=== PATIENT | male | born 1985 | race African-American/Black ===

== ENCOUNTER 2021-08-11 15:31 | Emergency (ER) | payer OTHER ==
[~2021-08-11] VITALS: Ht 165.1 cm; Wt 65.9 kg
[~2021-08-11 15:31] MED LIST: OLAN15TA2 PO; PARO10TA89 PO; QUET100T PO; VALP250S PO
[2021-08-11 16:44] LABS: BASOPHILS % (AUTO) 0.6 % (0.0-2.0); EOSINOPHILS % (AUTO) 5.8 % (1.0-6.0); HEMATOCRIT 36.6 % (41-53); HEMOGLOBIN 12.2 g/dL (13.5-17.5); LYMPHOCYTES # (AUTO) 1.1 K/uL (1.0-4.8); LYMPHOCYTES % (AUTO) 18.3 % (22.0-44.0); MEAN CORPUSCULAR HEMOGLOBIN 32.4 pg (26.0-34.0); MEAN CORPUSCULAR HGB CONC 33.5 G/dL (31.0-37.0); MEAN CORPUSCULAR VOLUME 97 fL (80-100); MONOCYTES # (AUTO) 0.5 K/uL (0.1-1.0); MONOCYTES % (AUTO) 8.2 % (2.0-9.0); NEUTROPHILS % (AUTO) 67.1 % (40.0-70.0); PLATELET COUNT (AUTO) 287 K/uL (150-450); RED BLOOD CELL COUNT(AUTO) 3.78 MIL/uL (4.50-5.90); RED CELL DISTRIBUTION WIDTH 14.1 % (11.5-14.5)
[2021-08-11 16:58] LABS: ANION GAP 8 mmol/L (8-16); CALCIUM, TOTAL 9.2 mg/dL (8.8-10.5); CARBON DIOXIDE 28 mmol/L (22-29); CHLORIDE 105 mmol/L (98-107); CREATININE 1.11 mg/dL (0.60-1.30); GLOMERULAR FILTR. RATE CALC > 60 mL/min (>60); GLUCOSE,RANDOM 102 mg/dL (70-110); POTASSIUM 4.2 mmol/L (3.5-5.1); SODIUM SERUM 141 mmol/L (136-145); UREA NITROGEN, BLOOD 11 mg/dL (7-18)
[2021-08-11 17:03] LABS: ALANINE AMINOTRANSFERASE 20 U/L (12-78); ALKALINE PHOSPHATASE 61 U/L (46-116); ASPARTATE AMINOTRANSFERASE 16 U/L (15-37); BILIRUBIN,TOTAL 0.3 mg/dL (0.1-1.0); TOTAL PROTEIN, SERUM 7.6 g/dL (6.4-8.2)
[2021-08-11] MEDS ORDERED: HALOPERIDOL 5 MG TABLET PO ONE (19:30)
[2021-08-11 19:54] LABS: AMPHET/METH SCREEN,URINE NEGATIVE (NEGATIVE); BARBITURATE SCREEN, URINE NEGATIVE (NEGATIVE); BENZODIAZEPINES SCREEN,URINE NEGATIVE (NEGATIVE); CANNABINOID SCREEN,URINE NEGATIVE (NEGATIVE); COCAINE SCREEN,URINE NEGATIVE (NEGATIVE); METHADONE SCREEN, URINE NEGATIVE (NEGATIVE); OPIATE SCREEN,URINE NEGATIVE (NEGATIVE); PHENCYCLIDINE SCREEN,URINE NEGATIVE (NEGATIVE)
[2021-08-11 21:40] VITALS: BP 104/60
== END 2021-08-11 22:20 | disposition home or self-care (01) ==
LOC: EMS 15:31
DX: F25.9 Schizoaffective disorder, unspecified (principal); Z79.899 Other long term (current) drug therapy
CPT/HCPCS: 36415; 80053; 80307; 85025; 99285; G0480

== ENCOUNTER 2022-03-23 17:41 | Emergency (ER) | payer OTHER ==
[~2022-03-23] VITALS: Ht 175.3 cm; Wt 65.9 kg
[2022-03-23 18:10] LABS: BASOPHILS % (AUTO) 0.3 % (0.0-2.0); EOSINOPHILS % (AUTO) 4.4 % (1.0-6.0); HEMATOCRIT 39.4 % (41-53); HEMOGLOBIN 12.9 g/dL (13.5-17.5); LYMPHOCYTES # (AUTO) 0.9 K/uL (1.0-4.8); LYMPHOCYTES % (AUTO) 16.6 % (22.0-44.0); MEAN CORPUSCULAR HEMOGLOBIN 30.1 pg (26.0-34.0); MEAN CORPUSCULAR HGB CONC 32.8 G/dL (31.0-37.0); MEAN CORPUSCULAR VOLUME 92 fL (80-100); MONOCYTES # (AUTO) 0.5 K/uL (0.1-1.0); NEUTROPHILS # (AUTO) 3.7 K/uL (1.8-7.7); NEUTROPHILS % (AUTO) 69.7 % (40.0-70.0); PLATELET COUNT (AUTO) 326 K/uL (150-450); RED BLOOD CELL COUNT(AUTO) 4.29 MIL/uL (4.50-5.90); RED CELL DISTRIBUTION WIDTH 14.1 % (11.5-14.5)
[2022-03-23] MEDS ORDERED: LORazepam 1 MG TABLET PO ONE (18:15)
[2022-03-23] MEDS ORDERED: HALOPERIDOL 5 MG TABLET PO ONE (18:15)
[2022-03-23] MEDS ORDERED: DiphenhydrAMINE HCL 25 MG CAPSULE PO ONE (18:15)
[2022-03-23] MEDS ORDERED: IBUPROFEN 600 MG TABLET PO ONE (18:15)
[2022-03-23 18:19] LABS: COVID AG,FIA SOURCE NASOPHARYNGEAL
[2022-03-23 18:19] LABS: ANION GAP 11 mmol/L (8-16); CALCIUM, TOTAL 9.3 mg/dL (8.8-10.5); CARBON DIOXIDE 26 mmol/L (22-29); CHLORIDE 103 mmol/L (98-107); CREATININE 1.05 mg/dL (0.60-1.30); GLUCOSE,RANDOM 104 mg/dL (70-110); SODIUM SERUM 140 mmol/L (136-145); UREA NITROGEN, BLOOD 11 mg/dL (7-18)
[2022-03-23 18:25] LABS: ALANINE AMINOTRANSFERASE 25 U/L (12-78); ALBUMIN 4.2 g/dL (3.4-5.0); ALKALINE PHOSPHATASE 72 U/L (46-116); ASPARTATE AMINOTRANSFERASE 20 U/L (15-37); BILIRUBIN,TOTAL 0.4 mg/dL (0.1-1.0); TOTAL PROTEIN, SERUM 7.6 g/dL (6.4-8.2)
[2022-03-23 18:28] LABS: GLOMERULAR FILTR. RATE CALC > 60 mL/min (>60); VALPROIC ACID < 3 mcg/mL (50-100)
[2022-03-23 21:07] LABS: AMPHET/METH SCREEN,URINE NEGATIVE (NEGATIVE); BARBITURATE SCREEN, URINE NEGATIVE (NEGATIVE); BENZODIAZEPINES SCREEN,URINE NEGATIVE (NEGATIVE); CANNABINOID SCREEN,URINE NEGATIVE (NEGATIVE); COCAINE SCREEN,URINE NEGATIVE (NEGATIVE); METHADONE SCREEN, URINE NEGATIVE (NEGATIVE); OPIATE SCREEN,URINE NEGATIVE (NEGATIVE)
[2022-03-23 21:11] LABS: PHENCYCLIDINE SCREEN,URINE NEGATIVE (NEGATIVE)
[2022-03-23 22:48] VITALS: BP 122/80
== END 2022-03-23 23:13 | disposition home or self-care (01) ==
LOC: EMS 17:43
DX: S60.221A Contusion of right hand, initial encounter (principal); F43.0 Acute stress reaction; Z79.899 Other long term (current) drug therapy; Z20.822 Contact with and (suspected) exposure to COVID-19; X58.XXXA Exposure to other specified factors, initial encounter; Y93.89 Activity, other specified; Y92.89 Other specified places as the place of occurrence of the external cause; Y99.8 Other external cause status
CPT/HCPCS: 36415; 73130; 80053; 80164; 80307; 85025; 87426; 99285; G0480

== ENCOUNTER 2022-04-26 16:33 | Inpatient (IN) | payer MEDICAID, OTHER ==
[~2022-04-26] VITALS: Ht 175.3 cm; Wt 69.9 kg
[2022-04-26 17:44] LABS: BASOPHILS % (AUTO) 0.3 % (0.0-2.0); EOSINOPHILS % (AUTO) 2.4 % (1.0-6.0); HEMATOCRIT 39.7 % (41-53); HEMOGLOBIN 13.3 g/dL (13.5-17.5); LYMPHOCYTES # (AUTO) 0.7 K/uL (1.0-4.8); LYMPHOCYTES % (AUTO) 11.9 % (22.0-44.0); MEAN CORPUSCULAR HGB CONC 33.6 G/dL (31.0-37.0); MEAN CORPUSCULAR VOLUME 92 fL (80-100); MONOCYTES # (AUTO) 0.5 K/uL (0.1-1.0); NEUTROPHILS # (AUTO) 4.8 K/uL (1.8-7.7); NEUTROPHILS % (AUTO) 77.4 % (40.0-70.0); PLATELET COUNT (AUTO) 281 K/uL (150-450); RED CELL DISTRIBUTION WIDTH 14.3 % (11.5-14.5)
[2022-04-26 17:57] LABS: ANION GAP 10 mmol/L (8-16); CALCIUM, TOTAL 9.4 mg/dL (8.8-10.5); CARBON DIOXIDE 26 mmol/L (22-29); CHLORIDE 102 mmol/L (98-107); CREATININE 0.96 mg/dL (0.60-1.30); GLOMERULAR FILTR. RATE CALC > 60 mL/min (>60); GLUCOSE,RANDOM 98 mg/dL (70-110); POTASSIUM 3.8 mmol/L (3.5-5.1); SODIUM SERUM 138 mmol/L (136-145); UREA NITROGEN, BLOOD 14 mg/dL (7-18)
[2022-04-26 18:04] LABS: ALANINE AMINOTRANSFERASE 26 U/L (12-78); ALBUMIN 4.2 g/dL (3.4-5.0); ALKALINE PHOSPHATASE 69 U/L (46-116); ASPARTATE AMINOTRANSFERASE 21 U/L (15-37); BILIRUBIN,TOTAL 0.7 mg/dL (0.1-1.0); TOTAL PROTEIN, SERUM 7.6 g/dL (6.4-8.2)
[2022-04-26 18:26] LABS: COVID AG,FIA SOURCE NASAL SWAB
[2022-04-26 19:19] LABS: VALPROIC ACID 6 mcg/mL (50-100)
[2022-04-26] MEDS ORDERED: HALOPERIDOL 5 MG TABLET PO PRN (20:45)
[2022-04-26] MEDS ORDERED: LORazepam 2 MG TABLET PO PRN (20:45)
[2022-04-27] MEDS ORDERED: LORazepam 2 MG/ML VIAL IM ONE (02:15)
[2022-04-27] MEDS ORDERED: HALOPERIDOL LACTATE 5 MG/ML VIAL IM ONE (02:15)
[2022-04-27] MEDS ORDERED: LORazepam 2 MG TABLET PO ONE (02:15)
[2022-04-27] MEDS ORDERED: DiphenhydrAMINE HCL 50 MG/ML VIAL IM ONE (02:15)
[2022-04-27 03:44] LABS: APPEARANCE,URINE CLEAR (CLEAR); BILIRUBIN,URINE NEGATIVE (NEGATIVE); GLUCOSE, URINE (UA) NEGATIVE (NEGATIVE); KETONES,URINE NEGATIVE (NEGATIVE); LEUKOCYTE ESTERASE ,URINE NEGATIVE (NEGATIVE); NITRATE,URINE NEGATIVE (NEGATIVE); OCCULT BLOOD,URINE NEGATIVE (NEGATIVE); PH,URINE 6.5 (5.0-8.0); PROTEIN,URINE NEGATIVE (NEGATIVE); SPECIFIC GRAVITIY, URINE 1.019 (1.003-1.030); UROBILINOGEN,URINE <=1.0 mg/dL (<=1.0)
[2022-04-27 03:49] LABS: AMPHET/METH SCREEN,URINE NEGATIVE (NEGATIVE); BARBITURATE SCREEN, URINE NEGATIVE (NEGATIVE); BENZODIAZEPINES SCREEN,URINE NEGATIVE (NEGATIVE); CANNABINOID SCREEN,URINE NEGATIVE (NEGATIVE); COCAINE SCREEN,URINE NEGATIVE (NEGATIVE); METHADONE SCREEN, URINE NEGATIVE (NEGATIVE); OPIATE SCREEN,URINE NEGATIVE (NEGATIVE)
[2022-04-27 03:50] LABS: PHENCYCLIDINE SCREEN,URINE NEGATIVE (NEGATIVE)
[2022-04-27 12:03] VITALS: BP 126/69
[2022-04-27 12:13] VITALS: BP 126/69
[2022-04-27] MEDS ORDERED: MAGNESIUM HYDROXIDE SUSPENSION 30 ML UDCUP PO PRN (13:30)
[2022-04-27] MEDS ORDERED: PETROLATUM,WHITE 28 GM JELLY TP PRN (13:30)
[2022-04-27] MEDS ORDERED: LOPERAMIDE HCL 2 MG CAPSULE PO PRN (13:30)
[2022-04-27] MEDS ORDERED: BACITRACIN 28 GM OINTMENT TP PRN (13:30)
[2022-04-27] MEDS ORDERED: BENZOCAINE/MENTHOL LOZENGE PO PRN (13:30)
[2022-04-27] MEDS ORDERED: MAG HYDROX/AL HYDROX/SIMETH ES 30 ML SUSPENSION UDCUP PO PRN (13:30)
[2022-04-27] MEDS ORDERED: ONDANSETRON HCL 4 MG TABLET PO PRN (13:30)
[2022-04-27] MEDS ORDERED: ALBUTEROL SULFATE HFA 90 MCG/PUFF 8 GM INHALER IH PRN (13:30)
[2022-04-27] MEDS ORDERED: ACETAMINOPHEN 325 MG TABLET PO PRN (13:30)
[2022-04-27] MEDS ORDERED: CloNIDine HCL 0.1 MG TABLET PO PRN (13:30)
[2022-04-27] MEDS ORDERED: IBUPROFEN 600 MG TABLET PO PRN (13:30)
[2022-04-27 16:14] VITALS: BP 117/73
[2022-04-27] MEDS: ZOLPIDEM TARTRATE 10 MG TABLET PO PRN (20:51)
[2022-04-28] MEDS: DOCUSATE SODIUM 100 MG CAPSULE PO SCH (08:28)
[2022-04-28] MEDS: OMEPRAZOLE 20 MG CAPSULE PO SCH (08:28)
[2022-04-28] MEDS: OLANZapine 7.5 MG TABLET PO SCH (20:03)
[2022-04-28 20:26] VITALS: BP 115/78
[2022-04-29] MEDS: DOCUSATE SODIUM 100 MG CAPSULE PO SCH (08:11)
[2022-04-29] MEDS: OMEPRAZOLE 20 MG CAPSULE PO SCH (08:11)
[2022-04-29 08:21] VITALS: BP 114/82
[2022-04-29] MEDS: OLANZapine 7.5 MG TABLET PO SCH (20:17)
[2022-04-29 20:19] VITALS: BP 107/74
[2022-04-30 08:13] VITALS: BP 135/81
[2022-04-30] MEDS: OMEPRAZOLE 20 MG CAPSULE PO SCH (09:26)
[2022-04-30] MEDS: DOCUSATE SODIUM 100 MG CAPSULE PO SCH (09:26)
[2022-04-30 20:28] VITALS: BP 123/83
[2022-04-30] MEDS: OLANZapine 7.5 MG TABLET PO SCH (20:35)
[2022-05-01] MEDS: ZOLPIDEM TARTRATE 10 MG TABLET PO PRN (00:53)
[2022-05-01 08:55] VITALS: BP 124/79
[2022-05-01 09:21] LABS: GLUCOMETER DEV NAME(LOC) POC.BV
[2022-05-01] MEDS: DOCUSATE SODIUM 100 MG CAPSULE PO SCH (09:30)
[2022-05-01] MEDS: OMEPRAZOLE 20 MG CAPSULE PO SCH (09:30)
[2022-05-01] MEDS ORDERED: OLAN7.5T22 PO (12:29)
== END 2022-05-01 13:30 | disposition home or self-care (01) | DRG 750 ==
LOC: EMS 16:33 → B2S 04-27 07:40
PROVIDERS: ADMIT Psychiatry & Neurology Psychiatry; ATTEND Psychiatry & Neurology Psychiatry
DX: F25.9 Schizoaffective disorder, unspecified (principal); F41.9 Anxiety disorder, unspecified; R62.50 Unspecified lack of expected normal physiological development in childhood; Z20.822 Contact with and (suspected) exposure to COVID-19; K59.00 Constipation, unspecified; G47.00 Insomnia, unspecified; Z79.899 Other long term (current) drug therapy
CPT/HCPCS: 80053; 80164; 81003; 85025; 99291; G0480; J1200; J1630; J2060

== ENCOUNTER 2022-10-23 19:48 | Inpatient (IN) | payer MEDICAID ==
[~2022-10-23] VITALS: Ht 172.7 cm; Wt 67.7 kg
[~2022-10-23 19:48] MED LIST changes: -OLAN15TA2 PO; +OLAN7.5T22 PO; -PARO10TA89 PO; -QUET100T PO; -VALP250S PO
[2022-10-24] MEDS ORDERED: LORazepam 2 MG/ML VIAL IM ONE
[2022-10-24] MEDS ORDERED: DiphenhydrAMINE HCL 50 MG/ML VIAL IM ONE
[2022-10-24] MEDS ORDERED: HALOPERIDOL LACTATE 5 MG/ML VIAL IM ONE
[2022-10-24] MEDS ORDERED: ZOLPIDEM TARTRATE 10 MG TABLET PO PRN (01:15)
[2022-10-24] MEDS ORDERED: LORazepam 2 MG TABLET PO PRN (01:15)
[2022-10-24] MEDS ORDERED: OLANZapine 5 MG RAPDIS TABLET PO PRN (01:15)
[2022-10-24 02:32] LABS: BASOPHILS % (AUTO) 0.7 % (0.0-2.0); EOSINOPHILS % (AUTO) 4.2 % (1.0-6.0); HEMATOCRIT 38.1 % (41-53); HEMOGLOBIN 12.6 g/dL (13.5-17.5); LYMPHOCYTES # (AUTO) 1.1 K/uL (1.0-4.8); LYMPHOCYTES % (AUTO) 19.9 % (22.0-44.0); MEAN CORPUSCULAR HEMOGLOBIN 31.1 pg (26.0-34.0); MEAN CORPUSCULAR HGB CONC 33.2 G/dL (31.0-37.0); MEAN CORPUSCULAR VOLUME 94 fL (80-100); MONOCYTES # (AUTO) 0.7 K/uL (0.1-1.0); MONOCYTES % (AUTO) 13.1 % (2.0-9.0); NEUTROPHILS # (AUTO) 3.4 K/uL (1.8-7.7); NEUTROPHILS % (AUTO) 62.1 % (40.0-70.0); PLATELET COUNT (AUTO) 249 K/uL (150-450); RED BLOOD CELL COUNT(AUTO) 4.06 MIL/uL (4.50-5.90)
[2022-10-24 02:44] LABS: ANION GAP 3 mmol/L (8-16); CALCIUM, TOTAL 8.7 mg/dL (8.8-10.5); CARBON DIOXIDE 30 mmol/L (22-29); CHLORIDE 105 mmol/L (98-107); CREATININE 0.93 mg/dL (0.60-1.30); GLUCOSE,RANDOM 92 mg/dL (70-110); POTASSIUM 3.5 mmol/L (3.5-5.1); SODIUM SERUM 138 mmol/L (136-145); UREA NITROGEN, BLOOD 11 mg/dL (7-18)
[2022-10-24 02:46] LABS: GLOMERULAR FILTR. RATE CALC > 60 mL/min (>60)
[2022-10-24 02:49] LABS: ALANINE AMINOTRANSFERASE 21 U/L (12-78); ALBUMIN 3.6 g/dL (3.4-5.0); ALKALINE PHOSPHATASE 83 U/L (46-116); ASPARTATE AMINOTRANSFERASE 21 U/L (15-37); BILIRUBIN,TOTAL 0.4 mg/dL (0.1-1.0); TOTAL PROTEIN, SERUM 6.9 g/dL (6.4-8.2)
[2022-10-24 04:14] LABS: COVID AG,FIA SOURCE NASOPHARYNGEAL
[2022-10-24 09:50] VITALS: BP 127/88
[2022-10-24] MEDS ORDERED: INFLUENZA VIRUS VACCINE QVS 2022-23 (6MO+)/PF 60 MCG/0.5 ML SYRINGE IM. ONE (11:30)
[2022-10-24 16:05] VITALS: BP 108/66
[2022-10-24 20:15] VITALS: BP 110/62
[2022-10-24] MEDS ORDERED: PROMETHAZINE HCL 25 MG TABLET PO PRN (20:45)
[2022-10-24] MEDS ORDERED: ACETAMINOPHEN 325 MG TABLET PO PRN (20:45)
[2022-10-24] MEDS ORDERED: MAG HYDROX/AL HYDROX/SIMETH ES 30 ML SUSPENSION UDCUP PO PRN (20:45)
[2022-10-24] MEDS ORDERED: TUBERCULIN, PURIFIED PROTEIN DERIVATIVE 5 TU/0.1 ML SYRINGE ID ONE (20:45)
[2022-10-24] MEDS ORDERED: MAGNESIUM HYDROXIDE SUSPENSION 30 ML UDCUP PO PRN (20:45)
[2022-10-24] MEDS ORDERED: HydrOXYzine PAMOATE 50 MG CAPSULE PO PRN (20:45)
[2022-10-24] MEDS ORDERED: LOPERAMIDE HCL 2 MG CAPSULE PO PRN ×2 (20:45)
[2022-10-24] MEDS ORDERED: GuaiFENesin/D-METHORPHAN [SUGAR-FREE] 200-20MG/10 ML SYRUP UDCUP PO PRN (20:45)
[2022-10-24] MEDS: MELATONIN 5 MG TABLET PO SCH (21:10)
[2022-10-24] MEDS: OLANZapine 5 MG RAPDIS TABLET PO SCH (21:10)
[2022-10-25 07:24] LABS: HEMOGLOBIN A1C 6.1 % (3.8-5.6)
[2022-10-25 07:36] LABS: CHOL/HDL RATIO 1.8 (4.2-7.3); FREE T4 (FREE THYROXINE) 0.9 ng/dL (0.76-1.46); THYROID STIMULATING HORMONE 1.72 uIU/mL (0.36-3.74)
[2022-10-25] MEDS: MULTIVITAMINS WITH MINERALS, THERAPEUTIC TABLET PO SCH (08:31)
[2022-10-25] MEDS: OMEGA-3/DHA/EPA/FISH OIL 1,000 MG CAPSULE PO SCH (08:31)
[2022-10-25] MEDS: THIAMINE 100 MG TABLET PO SCH ×2 (08:31→16:54)
[2022-10-25] MEDS: FOLIC ACID 1 MG TABLET PO SCH (08:31)
[2022-10-25 08:32] VITALS: BP 113/72
[2022-10-25] MEDS: MELATONIN 5 MG TABLET PO SCH (20:20)
[2022-10-25] MEDS: OLANZapine 5 MG RAPDIS TABLET PO SCH (20:20)
[2022-10-25 20:38] VITALS: BP 120/72
[2022-10-25] MEDS ORDERED: OMEG-135 PO (21:16)
[2022-10-25] MEDS ORDERED: OLAN5TAB94 PO (21:16)
[2022-10-25] MEDS ORDERED: MELA5TAB40 PO (21:16)
[2022-10-26] MEDS: MULTIVITAMINS WITH MINERALS, THERAPEUTIC TABLET PO SCH (08:13)
[2022-10-26] MEDS: OMEGA-3/DHA/EPA/FISH OIL 1,000 MG CAPSULE PO SCH (08:13)
[2022-10-26] MEDS: THIAMINE 100 MG TABLET PO SCH (08:14)
[2022-10-26] MEDS: FOLIC ACID 1 MG TABLET PO SCH (08:14)
[2022-10-26 09:44] VITALS: BP 116/63
[2022-10-26] MEDS ORDERED: OMEG-135 PO (10:45)
[2022-10-26] MEDS ORDERED: OLAN7.5T22 PO (10:46)
[2022-10-26] MEDS ORDERED: MELA5TAB40 PO (10:46)
== END 2022-10-26 13:00 | disposition home or self-care (01) | DRG 750 ==
LOC: EMS 20:00 → B3A 10-24 01:00
PROVIDERS: ADMIT Psychiatry & Neurology Psychiatry; ATTEND Psychiatry & Neurology Psychiatry
DX: F20.9 Schizophrenia, unspecified (principal); E83.51 Hypocalcemia; R45.851 Suicidal ideations; D64.9 Anemia, unspecified; Z20.822 Contact with and (suspected) exposure to COVID-19; F70 Mild intellectual disabilities; Z55.9 Problems related to education and literacy, unspecified; Z63.9 Problem related to primary support group, unspecified; Z65.3 Problems related to other legal circumstances; Z78.1 Physical restraint status; Z59.9 Problem related to housing and economic circumstances, unspecified
CPT/HCPCS: 80053; 80061; 83036; 84439; 84443; 85025; 86592; 99285; G0480; J1200; J1630; J2060; Q9967; 36415-L1; 36415-TC; Z7502; Z7610

== ENCOUNTER 2023-01-24 20:33 | Inpatient (IN) | payer MEDICAID ==
[~2023-01-24] VITALS: Ht 167.6 cm; Wt 69.6 kg
[~2023-01-24 20:33] MED LIST changes: +MELA5TAB40 PO; +OLAN5TAB94 PO; +OMEG-135 PO
[2023-01-24 21:36] LABS: BASOPHILS % (AUTO) 1.1 % (0.0-2.0); EOSINOPHILS % (AUTO) 9.4 % (1.0-6.0); HEMOGLOBIN 12.7 g/dL (13.5-17.5); LYMPHOCYTES # (AUTO) 1.2 K/uL (1.0-4.8); LYMPHOCYTES % (AUTO) 22.2 % (22.0-44.0); MEAN CORPUSCULAR HEMOGLOBIN 31.3 pg (26.0-34.0); MEAN CORPUSCULAR HGB CONC 33.5 G/dL (31.0-37.0); MEAN CORPUSCULAR VOLUME 93 fL (80-100); MONOCYTES # (AUTO) 0.5 K/uL (0.1-1.0); MONOCYTES % (AUTO) 8.7 % (2.0-9.0); NEUTROPHILS # (AUTO) 3.3 K/uL (1.8-7.7); NEUTROPHILS % (AUTO) 58.6 % (40.0-70.0); PLATELET COUNT (AUTO) 273 K/uL (150-450); RED BLOOD CELL COUNT(AUTO) 4.07 MIL/uL (4.50-5.90); RED CELL DISTRIBUTION WIDTH 13.8 % (11.5-14.5)
[2023-01-24 21:42] LABS: AMPHET/METH SCREEN,URINE NEGATIVE (NEGATIVE); BARBITURATE SCREEN, URINE NEGATIVE (NEGATIVE); BENZODIAZEPINES SCREEN,URINE NEGATIVE (NEGATIVE); CANNABINOID SCREEN,URINE NEGATIVE (NEGATIVE); COCAINE SCREEN,URINE NEGATIVE (NEGATIVE); METHADONE SCREEN, URINE NEGATIVE (NEGATIVE); OPIATE SCREEN,URINE NEGATIVE (NEGATIVE); PHENCYCLIDINE SCREEN,URINE NEGATIVE (NEGATIVE)
[2023-01-24 21:47] LABS: ANION GAP 11 mmol/L (8-16); CALCIUM, TOTAL 9.4 mg/dL (8.8-10.5); CARBON DIOXIDE 26 mmol/L (22-29); CHLORIDE 104 mmol/L (98-107); CREATININE 0.92 mg/dL (0.60-1.30); GLOMERULAR FILTR. RATE CALC > 60 mL/min (>60); GLUCOSE,RANDOM 105 mg/dL (70-110); POTASSIUM 4.1 mmol/L (3.5-5.1); SODIUM SERUM 141 mmol/L (136-145); UREA NITROGEN, BLOOD 12 mg/dL (7-18)
[2023-01-24 21:53] LABS: ALANINE AMINOTRANSFERASE 24 U/L (12-78); ALBUMIN 3.9 g/dL (3.4-5.0); ALKALINE PHOSPHATASE 91 U/L (46-116); ASPARTATE AMINOTRANSFERASE 19 U/L (15-37); BILIRUBIN,TOTAL 0.3 mg/dL (0.1-1.0); TOTAL PROTEIN, SERUM 7.4 g/dL (6.4-8.2)
[2023-01-24] MEDS ORDERED: DiphenhydrAMINE HCL 25 MG CAPSULE PO ONE (22:00)
[2023-01-24] MEDS ORDERED: HALOPERIDOL 5 MG TABLET PO ONE (22:00)
[2023-01-24] MEDS ORDERED: LORazepam 2 MG TABLET PO ONE (22:00)
[2023-01-24 22:04] LABS: COVID AG,FIA SOURCE NASOPHARYNGEAL
[2023-01-25] MEDS ORDERED: ZOLPIDEM TARTRATE 10 MG TABLET PO PRN (00:15)
[2023-01-25 01:49] VITALS: BP 131/79
[2023-01-25 09:26] VITALS: BP 141/97
[2023-01-25] MEDS ORDERED: CloNIDine HCL 0.1 MG TABLET PO PRN (15:45)
[2023-01-25] MEDS ORDERED: ACETAMINOPHEN 325 MG TABLET PO PRN (15:45)
[2023-01-25] MEDS ORDERED: IBUPROFEN 600 MG TABLET PO PRN (15:45)
[2023-01-25] MEDS ORDERED: OMEPRAZOLE 20 MG CAPSULE PO PRN (15:45)
[2023-01-25] MEDS ORDERED: BACITRACIN 28 GM OINTMENT TP PRN (15:45)
[2023-01-25] MEDS ORDERED: MAGNESIUM HYDROXIDE SUSPENSION 30 ML UDCUP PO PRN (15:45)
[2023-01-25] MEDS ORDERED: LOPERAMIDE HCL 2 MG CAPSULE PO PRN (15:45)
[2023-01-25] MEDS ORDERED: ONDANSETRON HCL 4 MG TABLET PO PRN (15:45)
[2023-01-25] MEDS ORDERED: MAG HYDROX/AL HYDROX/SIMETH ES 30 ML SUSPENSION UDCUP PO PRN (15:45)
[2023-01-25] MEDS ORDERED: DOCUSATE SODIUM 100 MG CAPSULE PO PRN (15:45)
[2023-01-25] MEDS ORDERED: ALBUTEROL SULFATE HFA 90 MCG/PUFF 8 GM INHALER IH PRN (15:45)
[2023-01-25] MEDS ORDERED: PETROLATUM,WHITE 28 GM JELLY TP PRN (15:45)
[2023-01-25 16:42] VITALS: BP 118/71
[2023-01-25 20:27] VITALS: BP 115/77
[2023-01-25] MEDS: HALOPERIDOL 5 MG TABLET PO PRN (21:20)
[2023-01-25] MEDS: LORazepam 2 MG TABLET PO PRN (21:21)
[2023-01-26] MEDS: OMEGA-3/DHA/EPA/FISH OIL 1,000 MG CAPSULE PO SCH (08:16)
[2023-01-26 10:10] VITALS: BP 129/79
[2023-01-26 16:08] VITALS: BP 122/77
[2023-01-26] MEDS: HALOPERIDOL 5 MG TABLET PO PRN (16:50)
[2023-01-26] MEDS: LORazepam 2 MG TABLET PO PRN (16:50)
[2023-01-26] MEDS: LITHIUM CARBONATE 300 MG CAPSULE PO SCH (16:51)
[2023-01-26] MEDS: DIVALPROEX SODIUM 500 MG DR TABLET PO SCH (16:51)
[2023-01-26] MEDS: OLANZapine 7.5 MG TABLET PO SCH (20:28)
[2023-01-26 20:38] VITALS: BP 120/76
[2023-01-27] MEDS: DIVALPROEX SODIUM 500 MG DR TABLET PO SCH ×2 (08:19→16:30)
[2023-01-27] MEDS: OMEGA-3/DHA/EPA/FISH OIL 1,000 MG CAPSULE PO SCH (08:19)
[2023-01-27] MEDS: LITHIUM CARBONATE 300 MG CAPSULE PO SCH ×2 (08:19→16:30)
[2023-01-27 10:29] VITALS: BP 117/60
[2023-01-27 16:12] VITALS: BP 102/60
[2023-01-27] MEDS: HALOPERIDOL 5 MG TABLET PO PRN (20:10)
[2023-01-27] MEDS: LORazepam 2 MG TABLET PO PRN (20:10)
[2023-01-27 20:20] VITALS: BP 111/66
[2023-01-27] MEDS: OLANZapine 7.5 MG TABLET PO SCH (21:02)
[2023-01-28] MEDS: DIVALPROEX SODIUM 500 MG DR TABLET PO SCH ×2 (08:06→17:20)
[2023-01-28] MEDS: LITHIUM CARBONATE 300 MG CAPSULE PO SCH ×2 (08:06→17:20)
[2023-01-28] MEDS: OMEGA-3/DHA/EPA/FISH OIL 1,000 MG CAPSULE PO SCH (08:06)
[2023-01-28 08:52] VITALS: BP 109/70
[2023-01-28 16:00] VITALS: BP 109/63
[2023-01-28 20:27] VITALS: BP 133/70
[2023-01-28] MEDS: OLANZapine 7.5 MG TABLET PO SCH (21:16)
[2023-01-28] MEDS: LORazepam 2 MG TABLET PO PRN (21:17)
[2023-01-29] MEDS: LORazepam 2 MG TABLET PO PRN ×2 (08:44→13:03)
[2023-01-29] MEDS: OMEGA-3/DHA/EPA/FISH OIL 1,000 MG CAPSULE PO SCH (08:44)
[2023-01-29] MEDS: DIVALPROEX SODIUM 500 MG DR TABLET PO SCH ×2 (08:44→17:21)
[2023-01-29] MEDS: LITHIUM CARBONATE 300 MG CAPSULE PO SCH ×2 (08:45→17:21)
[2023-01-29 08:56] VITALS: BP 109/81
[2023-01-29] MEDS ORDERED: OLAN7.5T22 PO (12:34)
[2023-01-29] MEDS ORDERED: LITH300C3 PO (12:34)
[2023-01-29] MEDS ORDERED: DIVA-112 PO (12:34)
[2023-01-29] MEDS: HALOPERIDOL 5 MG TABLET PO PRN (13:03)
[2023-01-29 16:34] VITALS: BP 102/69
[2023-01-29 20:05] VITALS: BP 124/84
[2023-01-29] MEDS: OLANZapine 7.5 MG TABLET PO SCH (20:35)
[2023-01-30] MEDS: LORazepam 2 MG TABLET PO PRN (08:17)
[2023-01-30] MEDS: DIVALPROEX SODIUM 500 MG DR TABLET PO SCH (08:17)
[2023-01-30] MEDS: LITHIUM CARBONATE 300 MG CAPSULE PO SCH (08:17)
[2023-01-30] MEDS: OMEGA-3/DHA/EPA/FISH OIL 1,000 MG CAPSULE PO SCH (08:17)
[2023-01-30 09:08] VITALS: BP 130/90
[2023-01-30 09:37] LABS: LITHIUM 0.3 mmol/L (0.60-1.20)
== END 2023-01-30 14:30 | disposition home or self-care (01) | DRG 750 ==
LOC: EMS 20:34 → 3EC 01-25 00:30
PROVIDERS: ADMIT Psychiatry & Neurology Psychiatry; ATTEND Psychiatry & Neurology Psychiatry
DX: F25.9 Schizoaffective disorder, unspecified (principal); R45.851 Suicidal ideations; F41.9 Anxiety disorder, unspecified; Z20.822 Contact with and (suspected) exposure to COVID-19; K59.00 Constipation, unspecified; G47.00 Insomnia, unspecified; R62.50 Unspecified lack of expected normal physiological development in childhood; Z79.899 Other long term (current) drug therapy
CPT/HCPCS: 80053; 80164; 80178; 80307; 85025; 99285; G0480; J3535

== ENCOUNTER 2023-06-20 17:23 | Emergency (ER) | payer MEDICAID, OTHER ==
[~2023-06-20] VITALS: Ht 175.3 cm; Wt 86.0 kg
[~2023-06-20 17:23] MED LIST changes: +DIVA-112 PO; +LITH300C3 PO; -MELA5TAB40 PO; -OLAN5TAB94 PO; -OMEG-135 PO
[2023-06-20 18:30] VITALS: TEMP 98.3
[2023-06-20] MEDS ORDERED: HYDR50CA6 PO (18:38)
[2023-06-20] MEDS ORDERED: ASCO-515 PO (18:38)
[2023-06-20] MEDS ORDERED: RISP0.5T39 PO (18:38)
[2023-06-20] MEDS ORDERED: DOCU100C33 PO (18:38)
[2023-06-20] MEDS ORDERED: CHLO50TA53 PO (18:38)
[2023-06-20] MEDS ORDERED: ZINC220T4 PO (18:38)
[2023-06-20] MEDS ORDERED: HALO5TAB2 PO (18:38)
[2023-06-20] MEDS ORDERED: ATOR20TA65 PO (18:38)
[2023-06-20] MEDS ORDERED: QUET50TA24 PO (18:38)
[2023-06-20] MEDS ORDERED: CLON0.5T4 PO (18:38)
[2023-06-20] MEDS ORDERED: ARIP10TA38 PO (18:38)
[2023-06-20] MEDS ORDERED: PARO10TA71 PO (18:38)
[2023-06-20] MEDS ORDERED: QUET100T34 PO (18:38)
[2023-06-20 18:45] LABS: BASOPHILS % (AUTO) 0.7 % (0.0-2.0); EOSINOPHILS % (AUTO) 6.4 % (1.0-6.0); HEMATOCRIT 40.5 % (41-53); HEMOGLOBIN 13.5 g/dL (13.5-17.5); LYMPHOCYTES # (AUTO) 1.3 K/uL (1.0-4.8); LYMPHOCYTES % (AUTO) 18.5 % (22.0-44.0); MEAN CORPUSCULAR HGB CONC 33.5 G/dL (31.0-37.0); MEAN CORPUSCULAR VOLUME 96 fL (80-100); MONOCYTES # (AUTO) 0.5 K/uL (0.1-1.0); MONOCYTES % (AUTO) 7.6 % (2.0-9.0); NEUTROPHILS # (AUTO) 4.6 K/uL (1.8-7.7); NEUTROPHILS % (AUTO) 66.8 % (40.0-70.0); PLATELET COUNT (AUTO) 274 K/uL (150-450); RED BLOOD CELL COUNT(AUTO) 4.24 MIL/uL (4.50-5.90); RED CELL DISTRIBUTION WIDTH 13.8 % (11.5-14.5); WHITE BLOOD COUNT (AUTO) 6.9 K/uL (4.5-11.0)
[2023-06-20 18:55] LABS: ANION GAP 4 mmol/L (8-16); CARBON DIOXIDE 30 mmol/L (22-29); CHLORIDE 103 mmol/L (98-107); CREATININE 0.95 mg/dL (0.60-1.30); GLOMERULAR FILTR. RATE CALC > 60 mL/min (>60); GLUCOSE,RANDOM 95 mg/dL (70-110); POTASSIUM 4.2 mmol/L (3.5-5.1); SODIUM SERUM 137 mmol/L (136-145); UREA NITROGEN, BLOOD 12 mg/dL (7-18)
[2023-06-20 19:01] LABS: ALCOHOL, BLOOD (SERUM) < 3 mg/dL (0-10)
[2023-06-20 19:03] LABS: ALANINE AMINOTRANSFERASE 15 U/L (12-78); ALBUMIN 3.8 g/dL (3.4-5.0); ALKALINE PHOSPHATASE 76 U/L (46-116); ASPARTATE AMINOTRANSFERASE 12 U/L (15-37); BILIRUBIN,TOTAL 0.3 mg/dL (0.1-1.0); TOTAL PROTEIN, SERUM 7.6 g/dL (6.4-8.2)
[2023-06-20 19:59] LABS: COVID AG,FIA SOURCE NASAL SWAB
[2023-06-20 20:30] LABS: SARS-COV2 (COVID) ANTIGEN,FIA Negative (Negative)
[2023-06-20] MEDS ORDERED: OLANZapine 5 MG TABLET PO ONE (20:30)
[2023-06-20] MEDS ORDERED: LORazepam 2 MG TABLET PO ONE (20:30)
[2023-06-20 21:27] VITALS: BP 146/84; PULSE 88; RESP 18
== END 2023-06-20 21:30 | disposition home or self-care (01) ==
LOC: EMS 17:24
DX: F69 Unspecified disorder of adult personality and behavior (principal); R62.50 Unspecified lack of expected normal physiological development in childhood; R45.851 Suicidal ideations; F25.9 Schizoaffective disorder, unspecified; F31.9 Bipolar disorder, unspecified; Z20.822 Contact with and (suspected) exposure to COVID-19
CPT/HCPCS: 99284; 87426; 80053; 85025; 36415; G0480

== ENCOUNTER 2024-05-12 15:36 | Inpatient (IN) | payer MEDICAID, OTHER ==
[~2024-05-12] VITALS: Ht 175.3 cm; Wt 96.4 kg
[~2024-05-12 15:36] MED LIST changes: +ARIP10TA38 PO; +ASCO-515 PO; +ATOR20TA65 PO; +CHLO50TA53 PO; +CLON0.5T4 PO; +DOCU100C33 PO; +HALO5TAB2 PO; +HYDR50CA6 PO; +PARO10TA71 PO; +QUET100T34 PO; +QUET50TA24 PO; +RISP0.5T39 PO; +ZINC220T4 PO
[2024-05-12 16:17] LABS: BASOPHILS % (AUTO) 0.6 % (0.0-2.0); EOSINOPHILS % (AUTO) 4.5 % (1.0-6.0); HEMOGLOBIN 13.7 g/dL (13.5-17.5); LYMPHOCYTES # (AUTO) 1.2 K/uL (1.0-4.8); LYMPHOCYTES % (AUTO) 18.7 % (22.0-44.0); MEAN CORPUSCULAR HEMOGLOBIN 31.7 pg (26.0-34.0); MEAN CORPUSCULAR HGB CONC 33.4 G/dL (31.0-37.0); MEAN CORPUSCULAR VOLUME 95 fL (80-100); MONOCYTES # (AUTO) 0.7 K/uL (0.1-1.0); MONOCYTES % (AUTO) 12.1 % (2.0-9.0); NEUTROPHILS % (AUTO) 64.1 % (40.0-70.0); PLATELET COUNT (AUTO) 272 K/uL (150-450); RED BLOOD CELL COUNT(AUTO) 4.33 MIL/uL (4.50-5.90); WHITE BLOOD COUNT (AUTO) 6.2 K/uL (4.5-11.0)
[2024-05-12 16:32] LABS: ANION GAP 8 mmol/L (8-16); CALCIUM, TOTAL 8.3 mg/dL (8.8-10.5); CARBON DIOXIDE 28 mmol/L (22-29); CHLORIDE 104 mmol/L (98-107); CREATININE 1.15 mg/dL (0.60-1.30); GLOMERULAR FILTR. RATE CALC > 60 mL/min (>60); GLUCOSE,RANDOM 106 mg/dL (70-110); POTASSIUM 4.1 mmol/L (3.5-5.1); SODIUM SERUM 140 mmol/L (136-145); UREA NITROGEN, BLOOD 10 mg/dL (7-18)
[2024-05-12 16:37] LABS: ALCOHOL, BLOOD (SERUM) < 3 mg/dL (0-10)
[2024-05-12] MEDS ORDERED: FLUT16SP NASAL (17:02)
[2024-05-12] MEDS ORDERED: PALI156D IM (17:02)
[2024-05-12] MEDS ORDERED: HYDR100C2 PO (17:02)
[2024-05-12 17:21] LABS: LITHIUM 0.31 mmol/L (0.60-1.20)
[2024-05-12 18:04] LABS: COVID AG,FIA SOURCE NPH
[2024-05-12 18:22] LABS: APPEARANCE,URINE CLEAR (CLEAR); BILIRUBIN,URINE NEGATIVE (NEGATIVE); COLOR,URINE LIGHT YELLOW (YELLOW); GLUCOSE, URINE (UA) NEGATIVE (NEGATIVE); KETONES,URINE NEGATIVE (NEGATIVE); LEUKOCYTE ESTERASE ,URINE NEGATIVE (NEGATIVE); NITRATE,URINE NEGATIVE (NEGATIVE); OCCULT BLOOD,URINE NEGATIVE (NEGATIVE); PH,URINE 6.5 (5.0-8.0); PH,URINE DRUG SCREEN 6.5 (5.0-8.0); PROTEIN,URINE NEGATIVE (NEGATIVE); SPECIFIC GRAVITIY, URINE 1.009 (1.003-1.030); UROBILINOGEN,URINE <=1.0 mg/dL (<=1.0)
[2024-05-12 18:30] LABS: ALCOHOL, URINE DRUG SCREEN NEGATIVE (NEGATIVE); AMPHET/METH SCREEN,URINE NEGATIVE (NEGATIVE); BARBITURATE SCREEN, URINE NEGATIVE (NEGATIVE); BENZODIAZEPINES SCREEN,URINE NEGATIVE (NEGATIVE); CANNABINOID SCREEN,URINE NEGATIVE (NEGATIVE); COCAINE SCREEN,URINE NEGATIVE (NEGATIVE); METHADONE SCREEN, URINE NEGATIVE (NEGATIVE); OPIATE SCREEN,URINE NEGATIVE (NEGATIVE); PHENCYCLIDINE SCREEN,URINE NEGATIVE (NEGATIVE)
[2024-05-12 18:31] LABS: SARS-COV2 (COVID) ANTIGEN,FIA Negative (Negative)
[2024-05-12] MEDS ORDERED: RISP1TAB48 PO (18:47)
[2024-05-12] MEDS ORDERED: CLON1TAB12 PO (18:47)
[2024-05-12] MEDS: ACETAMINOPHEN 500 MG TABLET PO ONE (19:38)
[2024-05-12] MEDS: PERTUSS(ACELL),DIPH,TET/PF 0.5 ML SYRINGE [ADULT] IM. ONE (20:07)
[2024-05-12] MEDS ORDERED: LORazepam 2 MG TABLET PO PRN (23:30)
[2024-05-12] MEDS ORDERED: QUEtiapine FUMARATE 100 MG TABLET PO PRN (23:30)
[2024-05-12] MEDS ORDERED: ZOLPIDEM TARTRATE 10 MG TABLET PO PRN (23:30)
[2024-05-12 23:50] VITALS: BP 141/96; PULSE 96; RESP 18; TEMP 97.4; O2SAT 98
[2024-05-13 08:14] VITALS: BP 120/73; PULSE 90; RESP 17; TEMP 97.8; O2SAT 99
[2024-05-13] MEDS ORDERED: MAG HYDROX/ALUMINUM HYD/SIMETH ES 30 ML SUSPENSION UDCUP PO PRN (09:00)
[2024-05-13] MEDS ORDERED: PROMETHAZINE HCL 25 MG TABLET PO PRN (09:00)
[2024-05-13] MEDS ORDERED: LOPERAMIDE HCL 2 MG CAPSULE PO PRN (09:00)
[2024-05-13] MEDS ORDERED: MAGNESIUM HYDROXIDE SUSPENSION 30 ML UDCUP PO PRN (09:00)
[2024-05-13] MEDS ORDERED: GuaiFENesin/D-METHORPHAN [SUGAR-FREE] 200-20MG/10 ML SYRUP UDCUP PO PRN (09:00)
[2024-05-13] MEDS ORDERED: TUBERCULIN, PURIFIED PROTEIN DERIVATIVE 5 TU/0.1 ML SYRINGE ID ONE (09:00)
[2024-05-13] MEDS ORDERED: HydrOXYzine PAMOATE 50 MG CAPSULE PO PRN (09:00)
[2024-05-13] MEDS: DIVALPROEX SODIUM 500 MG ER TABLET PO SCH (09:24)
[2024-05-13] MEDS: RisperiDONE 2 MG TABLET PO ONE (09:24)
[2024-05-13] MEDS: BuPROPion HCL XL 150 MG ER TABLET PO SCH (09:24)
[2024-05-13] MEDS: FOLIC ACID 1 MG TABLET PO SCH (09:24)
[2024-05-13] MEDS: THIAMINE 100 MG TABLET PO SCH (09:24)
[2024-05-13] MEDS: MULTIVITAMINS WITH MINERALS, THERAPEUTIC TABLET PO SCH (09:26)
[2024-05-13] MEDS: GuanFACINE HCL 1 MG TABLET PO SCH (10:44)
[2024-05-13] MEDS ORDERED: INSULIN LISPRO 100 UNITS/ML SQ PRN (11:00)
[2024-05-13] MEDS ORDERED: GLUCAGON,HUMAN RECOMBINANT 1 MG VIAL IM PRN (11:00)
[2024-05-13] MEDS ORDERED: DEXTROSE 50%-WATER 25 GM/50 ML SYRINGE IVP PRN (11:15)
[2024-05-13 16:31] VITALS: BP 127/68; PULSE 100; RESP 18; O2SAT 99
[2024-05-13] MEDS: DOCUSATE SODIUM 100 MG CAPSULE PO SCH (16:33)
[2024-05-13 17:05] LABS: GLUCOMETER DEV NAME(LOC) 3E.C; GLUCOSE,POINT OF CARE 116 MG/DL (70-110)
[2024-05-13 20:28] VITALS: RESP 18
[2024-05-13] MEDS: MELATONIN 5 MG TABLET PO SCH (20:43)
[2024-05-13] MEDS: RisperiDONE 2 MG TABLET PO SCH (20:44)
[2024-05-14] MEDS: INSULIN LISPRO 100 UNITS/ML SQ PRN (06:34)
[2024-05-14 06:45] LABS: GLUCOMETER DEV NAME(LOC) 3E.C; GLUCOSE,POINT OF CARE 98 MG/DL (70-110)
[2024-05-14 07:46] LABS: CHOL/HDL RATIO 2.7 (4.2-7.3); FREE T4 (FREE THYROXINE) 0.78 ng/dL (0.76-1.46); THYROID STIMULATING HORMONE 4.47 uIU/mL (0.36-3.74)
[2024-05-14] MEDS: ATORVASTATIN CALCIUM 20 MG TABLET PO SCH (08:16)
[2024-05-14] MEDS: FLUTICASONE PROPIONATE 50 MCG/SPRAY 16 GM NASAL SPRAY NASAL SCH (08:16)
[2024-05-14 08:55] VITALS: BP 142/96; PULSE 101; RESP 18; TEMP 97.6; O2SAT 98
[2024-05-14 12:17] VITALS: BP 138/89; PULSE 100; RESP 18
[2024-05-14 16:50] VITALS: BP 131/78; PULSE 113; RESP 18
[2024-05-14] MEDS ORDERED: RisperiDONE ER SUSPENSION 250 MG/0.7 ML PRE-FILLED SYRINGE SQ ONE ×2 (21:45→22:00)
[2024-05-14 22:01] VITALS: BP 123/77; PULSE 94; RESP 18; TEMP 98.7; O2SAT 95
[2024-05-15 07:00] LABS: GLUCOMETER DEV NAME(LOC) 3E.C; GLUCOSE,POINT OF CARE 98 MG/DL (70-110)
[2024-05-15 08:19] VITALS: BP 115/73; PULSE 80; RESP 17; TEMP 97.5; O2SAT 96
[2024-05-15] MEDS: GuanFACINE HCL 1 MG TABLET PO SCH (10:02)
[2024-05-15] MEDS: ATOMOXETINE HCL 10 MG CAPSULE PO SCH (10:02)
[2024-05-15] MEDS: BuPROPion HCL XL 150 MG ER TABLET PO SCH (10:09)
[2024-05-15] MEDS: RisperiDONE ER SUSPENSION 250 MG/0.7 ML PRE-FILLED SYRINGE SQ ONE (10:11)
[2024-05-15] MEDS ORDERED: DIVA-153 PO (11:38)
[2024-05-15] MEDS ORDERED: ATOM10CA4 PO (11:38)
[2024-05-15] MEDS ORDERED: MELA5TAB40 PO (11:38)
[2024-05-15] MEDS ORDERED: BUPR-514 PO (11:38)
[2024-05-15] MEDS ORDERED: RISP250S SQ (11:38)
[2024-05-15] MEDS ORDERED: GUAN1TAB2 PO (11:38)
[2024-05-15 16:41] LABS: GLUCOMETER DEV NAME(LOC) 3E.C; GLUCOSE,POINT OF CARE 145 MG/DL (70-110)
[2024-05-15 23:11] VITALS: BP 117/75; PULSE 97; RESP 18; TEMP 97.8; O2SAT 96
[2024-05-16 06:41] LABS: GLUCOMETER DEV NAME(LOC) 3E.C; GLUCOSE,POINT OF CARE 100 MG/DL (70-110)
[2024-05-16 09:47] VITALS: BP 123/66; PULSE 96; RESP 18; TEMP 97.8; O2SAT 100
[2024-05-16 10:42] VITALS: BP 129/70; PULSE 98; RESP 18; O2SAT 99
[2024-05-16] MEDS: ACETAMINOPHEN 325 MG TABLET PO PRN (10:42)
[2024-07-13] MEDS ORDERED: RisperiDONE ER SUSPENSION 250 MG/0.7 ML PRE-FILLED SYRINGE SQ SCH (09:00)
== END 2024-05-16 13:29 | disposition home or self-care (01) | DRG 750 ==
LOC: EMS 15:36 → EDH 21:30 → UNDOADMIN 21:30 → 3EC 05-13 00:24
PROVIDERS: ADMIT Psychiatry & Neurology Psychiatry; ATTEND Psychiatry & Neurology Psychiatry
PROC: GZHZZZZ Group Psychotherapy (ICD-10-PCS; principal; 2024-05-14)
PROC: GZ58ZZZ Individual Psychotherapy, Cognitive-Behavioral (ICD-10-PCS; 2024-05-14)
DX: F25.0 Schizoaffective disorder, bipolar type (principal); G93.41 Metabolic encephalopathy; F70 Mild intellectual disabilities; Z91.148 Patient's other noncompliance with medication regimen for other reason; E78.5 Hyperlipidemia, unspecified; F31.9 Bipolar disorder, unspecified; K59.00 Constipation, unspecified; Z20.822 Contact with and (suspected) exposure to COVID-19; J30.9 Allergic rhinitis, unspecified; D64.9 Anemia, unspecified
CPT/HCPCS: 80048; 80061; 80164; 80178; 80307; 82962; 83036; 84439; 84443; 85025; 86592; 90715; 99285; G0378; G0480